=== PATIENT | female | born 1995 | race Two or more races ===

== ENCOUNTER 2017-06-24 08:37 | Emergency (ER) | payer OTHER ==
[~2017-06-24] VITALS: Ht 160 cm; Wt 61.5 kg
[2017-06-24 08:37] VITALS: BP 117/65; PULSE 85; RESP 18; TEMP 98.7; O2SAT 100
[~2017-06-24 08:37] MED LIST: ANAP550T PO; PRENCAP6 OR
--- NOTE | 2017-06-24 09:03 | PD ---
HPI Chief Complaint: Cold / Flu Symptoms Time Seen by Provider: 09:00 Travel History International Travel<30 days: No Contact w/Intl Traveler<30days: No Traveled to known affect area: No History of Present Illness HPI 22-year-old female patient with history of no significant past medical issues, presents to the ER today with several days history of cough, cold symptoms, nasal congestion, sinus pressure, and has tried [id number] remedies without significant relief. She states that her daughter had a cold earlier in the week. She denies any vomiting, diarrhea, or any other symptoms. Modifying Factors: None Associated Signs & Symptoms: Cough, cold symptoms, nasal congestion, sinus pressure Risk Factors: Sick contact PFSH Past Medical History Medical History: Denies Significant Hx Tetanus Vaccination: < 5 Years ?: Not LMP: 05/24/17 : 4 Para: 2 : 2 Past Surgical History Other Surgery: Yes (HERNIA REPAIR 4 YOA) Social History Alcohol Use: Yes (SOCIALLY ) Tobacco Use: No Substance Use: No Allergies-Medications (Allergen,Severity, Reaction): Coded Allergies: No Known Allergies (Unverified Adverse Reaction, Unknown, 06/24/17) Reported Meds & Prescriptions Reported Meds & Active Scripts Active No Active Prescriptions or Reported Medications Review of Systems Except as stated in HPI: all other systems reviewed are Neg Physical Exam Narrative GENERAL: Well-developed young female patient currently none acute distress. Awake and oriented 3. SKIN: Focused skin assessment warm/dry. HEAD: Atraumatic. Normocephalic. EYES: Pupils equal and round. No scleral icterus. No injection or drainage. ENT: Mucosa pink and moist. Mild erythema with no significant exudates. No uvular edema. No uvular, palatal, or tonsillar deviation. Airway patent. NECK: Trachea midline. No JVD. CARDIOVASCULAR: Regular rate and rhythm. No murmur appreciated. RESPIRATORY: No accessory muscle use. Clear to auscultation. Breath sounds equal bilaterally. GASTROINTESTINAL: Abdomen soft, non-tender, nondistended. Hepatic and splenic margins not palpable. MUSCULOSKELETAL: No obvious deformities. No clubbing. No cyanosis. No edema. NEUROLOGICAL: Awake and alert. No obvious cranial nerve deficits. Motor grossly within normal limits. Normal speech. PSYCHIATRIC: Appropriate mood and affect; insight and judgment normal. Data Data Last Documented VS Vital Signs Date Time Temp Pulse Resp B/P (MAP) Pulse Ox O2 Delivery O2 Flow Rate FiO2 06/24/17 08:37 98.7 85 18 117/65 (82) 100 Room Air Orders Orders Influenzae A/B Antigen (06/24/17 09:00) MDM Medical Decision Making Medical Screen Exam Complete: Yes Emergency Medical Condition: Yes Medical Record Reviewed: Yes Differential Diagnosis Cough, cold symptoms, sinus pressure: URI versus influenza Narrative Course Influenza testing is negative. I suspect she has underlying URI. At this point , I would recommend symptomatic relief or cold symptoms and follow-up with primary care physician. Return as needed for new issues. The plan has discussed with her and she states understanding. Diagnosis Primary Impression: Viral URI Med/Other Pt SpecificInfo: Prescription(s) given Scripts Ibuprofen (Ibuprofen) 600 Mg Tab 600 MG PO Q6H Y for PAIN, #20 TAB 0 Refills Prov: Alex Shrestha MD 06/24/17 Pseudoephedrine HCl (Sudafed) 30 Mg Tablet 30 MG PO QID Y for NASAL CONGESTION, #15 Prov: Alex Shrestha MD 06/24/17 Disposition: 01 DISCHARGE HOME Condition: Stable Alex Shrestha MD Jun 24, 2017 09:03
[2017-06-24] MEDS ORDERED: IBUP-232 PO (09:47)
[2017-06-24] MEDS ORDERED: PSEU30TA82 PO (09:47)
== END 2017-06-24 09:57 | disposition home or self-care (01) ==
LOC: NEPD 08:37
DX: J06.9 Acute upper respiratory infection, unspecified (principal)
CPT/HCPCS: 87804; 99283

== ENCOUNTER 2017-06-27 11:51 | Emergency (ER) | payer OTHER ==
[~2017-06-27] VITALS: Ht 160 cm; Wt 61.5 kg
[~2017-06-27 11:51] MED LIST changes: -ANAP550T PO; +IBUP-232 PO; -PRENCAP6 OR; +PSEU30TA82 PO
[2017-06-27 11:52] VITALS: BP 114/64; PULSE 83; RESP 12; TEMP 97.8; O2SAT 99
--- NOTE | 2017-06-27 12:20 | PD ---
HPI Chief Complaint: Respiratory Symptoms Time Seen by Provider: 12:15 Travel History International Travel<30 days: No Contact w/Intl Traveler<30days: No Traveled to known affect area: No History of Present Illness HPI c/o frontal area head pain being more persistant than last week when she was seen in ed with neg flu test...patient reports that her head pressure has worsened since she was seen last.. patient points to forehead as worse area of pressure, 11/03, no c/o fever/n/v/d/cp/abdpain/back pain/ chart and rn notes reviewed. all:nkda PFSH Past Medical History Hx Anticoagulant Therapy: No Cardiovascular Problems: No Chemotherapy: No Cerebrovascular Accident: No Diabetes: No Respiratory: No ?: Unknown LMP: possibly 3 days late : 4 Para: 2 : 2 Past Surgical History Hysterectomy: No Other Surgery: Yes (HERNIA REPAIR 4 YOA) Social History Alcohol Use: Yes (SOCIALLY ) Tobacco Use: No Substance Use: No Allergies-Medications (Allergen,Severity, Reaction): Coded Allergies: No Known Allergies (Unverified Adverse Reaction, Unknown, 06/24/17) Reported Meds & Prescriptions Reported Meds & Active Scripts Active Augmentin (Amoxicillin-Clavulanate) 875-125 Mg Tab 1 Tab PO BID 10 Days Ibuprofen 600 Mg Tab 600 Mg PO Q6H PRN Sudafed (Pseudoephedrine HCl) 30 Mg Tablet 30 Mg PO QID PRN Review of Systems General / Constitutional: No: Fever Eyes: No: Visual changes HENT: Positive: Headaches Cardiovascular: No: Chest Pain or Discomfort Respiratory: No: Shortness of Breath Gastrointestinal: No: Abdominal Pain Genitourinary: No: Dysuria Musculoskeletal: No: Pain Skin: No Rash Neurologic: No: Weakness Psychiatric: No: Depression Endocrine: No: Polydipsia Hematologic/Lymphatic: No: Easy Bruising Physical Exam Narrative GENERAL: SKIN: Warm and dry. HEAD: Atraumatic. Normocephalic. tt percussion over forehead EYES: Pupils equal and round. No scleral icterus. No injection or drainage. ENT: No nasal bleeding or discharge. Mucous membranes pink and moist. NECK: Trachea midline. No JVD. CARDIOVASCULAR: Regular rate and rhythm. RESPIRATORY: No accessory muscle use. Clear to auscultation. Breath sounds equal bilaterally. GASTROINTESTINAL: Abdomen soft, non-tender, nondistended. MUSCULOSKELETAL: Extremities without clubbing, cyanosis, or edema. No obvious deformities. NEUROLOGICAL: Awake and alert. No obvious cranial nerve deficits. Motor grossly within normal limits. Five out of 5 muscle strength in the arms and legs. Normal speech. PSYCHIATRIC: Appropriate mood and affect; insight and judgment normal. Data Data Last Documented VS Orders Orders Ed Discharge Order (06/27/17 12:40) MDM Medical Decision Making Medical Screen Exam Complete: Yes Emergency Medical Condition: Yes Medical Record Reviewed: Yes Differential Diagnosis viral syndrome v uri v sinusitis Narrative Course after clinical evaluation patient's condition most consistent wit clinical frontal sinusitis and will be treated as such Diagnosis Primary Impression: Clinical sinusitis Patient Instructions: General Instructions, Sinusitis (GEN) Scripts Amoxicillin-Clavulanate (Augmentin) 875-125 Mg Tab 1 TAB PO BID for Infection for 10 Days, #20 TAB 0 Refills Prov: Sukhwinder Carrasquillo MD 06/27/17 Disposition: 01 DISCHARGE HOME Condition: Stable Sukhwinder Carrasquillo MD Jun 27, 2017 12:20
[2017-06-27] MEDS ORDERED: AUGM875T3 PO (12:39)
== END 2017-06-27 12:43 | disposition home or self-care (01) ==
LOC: NEPD 11:51
DX: J32.1 Chronic frontal sinusitis (principal)
CPT/HCPCS: 99283

== ENCOUNTER 2018-01-18 15:14 | Emergency (ER) | payer OTHER ==
[~2018-01-18] VITALS: Ht 160 cm; Wt 63.2 kg
[~2018-01-18 15:14] MED LIST changes: +AUGM875T3 PO
[2018-01-18 15:15] VITALS: BP 101/58; PULSE 67; RESP 16; TEMP 98.2; O2SAT 100
--- NOTE | 2018-01-18 15:48 | PD ---
HPI Chief Complaint: Related Problem Time Seen by Provider: 15:31 Travel History International Travel<30 days: No Contact w/Intl Traveler<30days: No Traveled to known affect area: No History of Present Illness HPI 23 y/o presents at approximately 6 weeks 2 days by LMP with a chief complaint of vaginal bleeding and cramping. The bleeding and cramping started this morning and has increased in amount since. She has not noticed passaged of tissue or clots. She denies problems with prior pregnancies, recent intercourse , or active infections. She indicates a history of Chlamydia in 2012 for which she underwent treatment. Modifying Factors: None Associated Signs & Symptoms: , vaginal bleeding and cramping Risk Factors: Previous history of chlamydia PFSH Past Medical History Hx Anticoagulant Therapy: No Cardiovascular Problems: No Chemotherapy: No Cerebrovascular Accident: No Diabetes: No Respiratory: No ?: LMP: 12/05/17 : 4 Para: 2 : 2 Past Surgical History Hysterectomy: No Other Surgery: Yes (HERNIA REPAIR 4 YOA) Social History Alcohol Use: Yes (SOCIALLY ) Tobacco Use: No Substance Use: No Allergies-Medications (Allergen,Severity, Reaction): Coded Allergies: No Known Allergies (Unverified Adverse Reaction, Unknown, 01/18/18) Reported Meds & Prescriptions Reported Meds & Active Scripts Active No Active Prescriptions or Reported Medications Review of Systems Except as stated in HPI: all other systems reviewed are Neg Physical Exam Narrative GENERAL: Pleasant 23 y/o female who appears her stated age and is in NAD. SKIN: Warm and dry. HEAD: Atraumatic. Normocephalic. EYES: Pupils equal and round. No scleral icterus. No injection or drainage. ENT: No nasal bleeding or discharge. Mucous membranes pink and moist. NECK: Trachea midline. No JVD. CARDIOVASCULAR: Regular rate and rhythm. RESPIRATORY: No accessory muscle use. Clear to auscultation. Breath sounds equal bilaterally. GASTROINTESTINAL: Abdomen soft, non-tender, nondistended. Hepatic and splenic margins not palpable. MUSCULOSKELETAL: Extremities without clubbing, cyanosis, or edema. No obvious deformities. NEUROLOGICAL: Awake and alert. No obvious cranial nerve deficits. Motor grossly within normal limits. Five out of 5 muscle strength in the arms and legs. Normal speech. PSYCHIATRIC: Appropriate mood and affect; insight and judgment normal. GENITOURINARY: Normal external genitalia without lesions or erythema. Blood noted in vaginal vault and at cervical os. Cervical os is closed. No cervical motion tenderness. Uterus nontender and nonenlarged. Bilateral adnexa nontender without masses. Data Data Last Documented VS Vital Signs Date Time Temp Pulse Resp B/P (MAP) Pulse Ox O2 Delivery O2 Flow Rate FiO2 01/18/18 15:15 98.2 67 16 101/58 (72) 100 Orders Orders Beta Hcg (Quant/Titer) (01/18/18 15:21) Complete Blood Count With Diff (01/18/18 15:21) Basic Metabolic Panel (Bmp) (01/18/18 15:21) Complete Rh (01/18/18 15:21) Urinalysis - C+S If Indicated (01/18/18 15:21) Urine Culture (01/18/18 15:50) Ed Discharge Order (01/18/18 17:15) Labs Laboratory Tests Test 01/18/18 15:50 White Blood Count 7.4 TH/MM3 Red Blood Count 3.98 MIL/MM3 Hemoglobin 12.9 GM/DL Hematocrit 37.6 % Mean Corpuscular Volume 94.4 FL Mean Corpuscular Hemoglobin 32.4 PG Mean Corpuscular Hemoglobin Concent 34.3 % Red Cell Distribution Width 12.9 % Platelet Count 262 TH/MM3 Mean Platelet Volume 8.9 FL Neutrophils (%) (Auto) 61.6 % Lymphocytes (%) (Auto) 28.6 % Monocytes (%) (Auto) 7.4 % Eosinophils (%) (Auto) 1.5 % Basophils (%) (Auto) 0.9 % Neutrophils # (Auto) 4.5 TH/MM3 Lymphocytes # (Auto) 2.1 TH/MM3 Monocytes # (Auto) 0.6 TH/MM3 Eosinophils # (Auto) 0.1 TH/MM3 Basophils # (Auto) 0.1 TH/MM3 CBC Comment DIFF FINAL Differential Comment Urine Collection Type VOIDED Urine Color RED Urine Turbidity CLOUDY Urine pH 5.0 Urine Specific [place] 1.025 Urine Protein 100 mg/dL Urine Glucose (UA) NEG mg/dL Urine Ketones TRACE mg/dL Urine Occult Blood LARGE Urine Nitrite POS Urine Bilirubin NEG Urine Urobilinogen 2.0 MG/DL Urine Leukocyte Esterase SMALL Urine RBC INNUM /hpf Urine WBC 15-19 /hpf Urine Squamous Epithelial Cells 0-5 /hpf Urine Bacteria RARE /hpf Microscopic Urinalysis Comment CULTURE INDICATED Blood Urea Nitrogen 12 MG/DL Creatinine 0.62 MG/DL Random Glucose 84 MG/DL Calcium Level 8.6 MG/DL Sodium Level 139 MEQ/L Potassium Level 3.6 MEQ/L Chloride Level 105 MEQ/L Carbon Dioxide Level 24.9 MEQ/L Anion Gap 9 MEQ/L Estimat Glomerular Filtration Rate 144 ML/MIN Human Chorionic Gonadotropin, Quant 91 MIU/ML [facility] Medical Decision Making Medical Screen Exam Complete: Yes Emergency Medical Condition: Yes Medical Record Reviewed: Yes Interpretation(s) Laboratory Tests Test 01/18/18 15:50 Red Blood Count 3.98 MIL/MM3 (4.00-5.30) Urine Color RED (YELLW/STRAW) Urine Turbidity CLOUDY (CLEAR) Urine Protein 100 mg/dL (NEG-TRACE) Urine Ketones TRACE mg/dL (NEG) Urine Occult Blood LARGE (NEG) Urine Nitrite POS (NEG) Urine Leukocyte Esterase SMALL (NEG) Urine RBC INNUM /hpf (0-3) Urine WBC 15-19 /hpf (0-5) Urine Bacteria RARE /hpf (NONE) Human Chorionic Gonadotropin, Quant 91 MIU/ML (0-5) Differential Diagnosis Threatened AB versus ectopic versus dysmenorrhea Narrative Course H&H is stable. HCG is 91. She is Rh+. At this point, cervical office is closed, she is having bleeding, and her hCG is fairly low, and will need to be followed up in 2 days for further assessment of bleeding. She should return for any worsening of bleeding, pain, and as needed. The plan has been discussed with her and she states understanding. Diagnosis Primary Impression: Threatened Scripts No Active Prescriptions or Reported Meds Disposition: DISCHARGE HOME Condition: Stable Alex Shrestha MD Jan 18, 2018 15:48
[2018-01-18 16:08] LABS: AUTOMATED NEUTROPHIL # 4.5 TH/MM3 (1.8-7.7); BASOPHIL # 0.1 TH/MM3 (0-0.2); BASOPHIL % 0.9 % (0.0-2.0); EOSINOPHIL # 0.1 TH/MM3 (0-0.4); EOSINOPHIL % 1.5 % (0.0-4.0); HEMATOCRIT 37.6 % (35.0-46.0); HEMOGLOBIN 12.9 GM/DL (11.6-15.3); LYMPH % 28.6 % (9.0-44.0); LYMPHOCYTE # 2.1 TH/MM3 (1.0-4.8); MEAN CELL VOLUME 94.4 FL (80.0-100.0); MEAN CORPUSCULAR HEMOGLOBIN 32.4 PG (27.0-34.0); MEAN CORPUSCULAR HGB CONC 34.3 % (32.0-36.0); MEAN PLATELET VOLUME 8.9 FL (7.0-11.0); MONO % 7.4 % (0.0-8.0); MONOCYTE # 0.6 TH/MM3 (0-0.9); NEUT % 61.6 % (16.0-70.0); PLATELET COUNT 262 TH/MM3 (150-450); RED BLOOD COUNT 3.98 MIL/MM3 (4.00-5.30); RED CELL DISTRIBUTION WIDTH 12.9 % (11.6-17.2); WHITE BLOOD COUNT 7.4 TH/MM3 (4.0-11.0)
[2018-01-18 16:13] LABS: BILIRUBIN, URINE NEG (NEG); BLOOD, URINE LARGE (NEG); GLUCOSE,URINE NEG (NEG); KETONE, URINE TRACE mg/dL (NEG); NITRITE,URINE POS (NEG); URINE LEUKOCYTE ESTERASE SMALL (NEG)
[2018-01-18 16:20] LABS: CALCIUM 8.6 MG/DL (8.5-10.1)
[2018-01-18 16:21] LABS: BICARBONATE 24.9 MEQ/L (21.0-32.0)
[2018-01-18 16:24] LABS: CREATININE 0.62 MG/DL (0.50-1.00)
[2018-01-18 16:25] LABS: URINE COLOR RED (YELLW/STRAW)
[2018-01-18 16:50] LABS: RBC, URINE INNUM /hpf (0-3); WBC, URINE 15-19 /hpf (0-5)
[2018-01-18 16:51] LABS: BACTERIA, URINE RARE /hpf; SQUAMOUS EPITHELIAL CELL URINE 0-5 /hpf (0-5)
== END 2018-01-18 17:55 | disposition home or self-care (01) ==
LOC: PHED 15:14
DX: O20.0 Threatened abortion (principal); B96.89 Other specified bacterial agents as the cause of diseases classified elsewhere; Z3A.00 Weeks of gestation of pregnancy not specified
CPT/HCPCS: 80048; 81001; 84702; 85025; 86901; 87086; 99283